=== PATIENT | male | born 1970 | race Caucasian/White ===

== ENCOUNTER 2023-12-14 12:21 | Outpatient (CLI) | payer OTHER, SELFPAY ==
--- NOTE | ~2023-12-14 | US_ITS ---
US abdomen limited INDICATION: Right upper quadrant pain PROCEDURE: Realtime right upper abdominal ultrasound. COMPARISON: No prior studies for comparison. FINDINGS: The pancreas is normal without focal mass or pancreatic ductal dilation. Liver echotexture is normal without focal mass or intrahepatic biliary dilatation. There is normal directional flow i n the portal vein. There are multiple gallbladder polyps. No definitive gallstones, gallbladder wall thickening or peric holecystic fluid. Common bile duct measures 6 mm. No sonographic Mccall's sign. IMPRESSION: 1: Gallbladder polyps measuring 3 mm or less. Reviewed, dictated and finalized at location B.
== END 2023-12-14 12:22 | disposition home or self-care (01) ==
LOC: ANHIMG 12:22
PROVIDERS: PCP Family Medicine; Visit Provider Family Medicine
DX: R10.811 Right upper quadrant abdominal tenderness (principal); K82.4 Cholesterolosis of gallbladder
CPT/HCPCS: 76705

== ENCOUNTER 2025-04-07 14:07 | Outpatient (CLI) | payer OTHER, SELFPAY ==
--- NOTE | ~2025-04-07 | US_ITS ---
EXAMINATION: US soft tissue groin RT DATE: 04/07/2025 14:32 INDICATION: Right groin pain TECHNIQUE: Multiple grayscale and Doppler ultrasound images of the right groin were obtained. COMPARISON: None FINDINGS: There is increase in mobile fat within the right inguinal canal following Valsalva consistent with fat-containing inguinal hernia. No evident herniated bowel. There are a few hypoechoic normal-sized right inguinal lymph nodes with typical small central echogenic fatty tosha. IMPRESSION: 1. Small fat-containing right inguinal hernia which increases in size with Valsalva Reviewed, dictated and finalized at location A. 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 Small fat-containing right inguinal hernia which increases in size with Vals campuzano
== END 2025-04-07 14:08 | disposition home or self-care (01) ==
PROVIDERS: PCP Family Medicine; Visit Provider Family Medicine
DX: R10.31 Right lower quadrant pain (principal); K41.90 Unilateral femoral hernia, without obstruction or gangrene, not specified as recurrent; K40.90 Unilateral inguinal hernia, without obstruction or gangrene, not specified as recurrent
CPT/HCPCS: 76882